=== PATIENT | female | born 1960 | race Caucasian/White ===

== ENCOUNTER 2019-11-02 12:28 | Emergency (ER) | payer SELFPAY ==
[~2019-11-02] VITALS: Ht 167.6 cm; Wt 76.2 kg
[2019-11-02] MEDS ORDERED: OLANZAPINE 5 MG TABLET ONE (13:14)
[2019-11-02] MEDS ORDERED: OLANZAPINE 5 MG TABLET PO ONE (13:15)
--- NOTE | 2019-11-02 14:08 | NUR ---
Patient given written and verbal discharge instructions. Patient verbalizes understanding of instructions. Patient is ambulatory with steady gait. Refuses offer of assisted placement. Patient given list of available shelters in surrounding area.
[2019-11-02 14:09] VITALS: BP 131/75
== END 2019-11-02 14:11 | disposition home or self-care (01) ==
LOC: ER 12:54
DX: Z76.0 Encounter for issue of repeat prescription (principal); F29 Unspecified psychosis not due to a substance or known physiological condition
CPT/HCPCS: A4663

== ENCOUNTER 2019-11-02 15:52 | Emergency (ER) | payer SELFPAY ==
[~2019-11-02] VITALS: Ht 170.2 cm; Wt 80.3 kg
[2019-11-02] MEDS ORDERED: IV NORMAL SALINE 1000 ML BAG IV ONE (16:00)
[2019-11-02 16:31] LABS: BASOPHILS # (AUTO) 0.1 K/uL (0.0-8.0); BASOPHILS % (AUTO) 0.9 % (0.0-2.0); EOSINOPHILS # (AUTO) 0.5 K/uL (0.0-0.7); EOSINOPHILS % (AUTO) 8.4 % (0.0-7.0); HEMATOCRIT 34.7 % (31.2-41.9); HEMOGLOBIN 11.5 g/dL (10.9-14.3); LYMPHOCYTES # (AUTO) 1.3 K/uL (20.0-40.0); LYMPHOCYTES % (AUTO) 20.9 % (20.5-51.5); MEAN CORPUSCULAR HEMOGLOBIN 30.2 uug (24.7-32.8); MEAN CORPUSCULAR HGB CONC 33 g/dL (32.3-35.6); MEAN CORPUSCULAR VOLUME 91.2 fL (75.5-95.3); MONOCYTES # (AUTO) 0.6 K/uL (2.0-10.0); MONOCYTES % (AUTO) 8.9 % (0.0-11.0); NEUTROPHILS # (AUTO) 3.9 K/uL (1.8-8.9); NEUTROPHILS % (AUTO) 60.9 % (38.5-71.5); PLATELET COUNT (AUTO) 224 K/uL (179-408); RED BLOOD CELL COUNT(AUTO) 3.81 MIL/uL (3.63-4.92); WHITE BLOOD COUNT (AUTO) 6.4 K/uL (3.8-11.8)
[2019-11-02 16:37] LABS: CARBON DIOXIDE 25 mmol/L (21-32); CHLORIDE 109 mmol/L (98-107); CREATININE 0.8 mg/dL (0.6-1.3); GLUCOSE 110 mg/dL (74-106); POTASSIUM 3.6 mmol/L (3.5-5.1); UREA NITROGEN, BLOOD 11 mg/dL (7-18)
--- NOTE | 2019-11-02 16:42 | NUR ---
PT IS IN ROOM #2B. DR NUNEZ EVALUATED THE PT.
[2019-11-02 16:48] LABS: ETHANOL < 3 MG/DL (0-0)
[2019-11-02 16:56] LABS: ALANINE AMINOTRANSFERASE 23 U/L (14-59); ALKALINE PHOSPHATASE 111 U/L (50-136); ASPARTATE AMINOTRANSFERASE 22 U/L (15-37); BILIRUBIN,DIRECT 0.1 mg/dL (0.0-0.2); BILIRUBIN,TOTAL 0.4 mg/dL (0.2-1.0); TOTAL PROTEIN, SERUM 6.3 g/dL (6.4-8.2)
[2019-11-02 16:59] LABS: ACETAMINOPHEN < 2.0 ug/mL (10-30); THYROID STIMULATING HORMONE 4.396 mIU/mL (0.358-3.740)
--- NOTE | 2019-11-02 17:07 | NUR ---
PT's SISTER KELLY WAS CALLED TO CROP OR GRAIN FARMER THE PT AFTER DISCHARGE FROM [facility]. MESSAGE WAS LEFT. ).
--- NOTE | 2019-11-02 18:10 | NUR ---
PT's SISTER WAS CALED 2nd TIME. MESSAGE WAS LEFT. PT IS RESTING IN BED COMFORTABLY. NO S/S OF ACUTE DISTRESS AT THIS TIME.
--- NOTE | 2019-11-02 19:00 | NUR ---
REPORT GIVEN TO STATEMENT DISTRIBUTION CLERK RN .
--- NOTE | 2019-11-02 19:15 | NUR ---
Patient noted resting in bed, no signs of distress noted
--- NOTE | 2019-11-02 20:22 | NUR ---
Vital signs are stable, patient continues to rest in bed with eyes closed, no signs of distress noted
--- NOTE | 2019-11-02 20:35 | NUR ---
limited radiology technician in room to take patient for CT of head
--- NOTE | 2019-11-02 20:49 | NUR ---
Patient back from CT of head
[2019-11-02] MEDS ORDERED: OLANZAPINE 5 MG TABLET PO ONE (21:15)
[2019-11-02] MEDS ORDERED: OLANZAPINE 5 MG TABLET ONE (21:25)
--- NOTE | 2019-11-02 23:09 | NUR ---
Note earnest in EDM - 11/02/19 at 2310 by JUHI Pt. admitted to [facility] at this time , under care of Dr. Gamal maddox Belongs List completed and all belongs sent with patient, 1 to 1 sitter at bedside, no behaviors noted
--- NOTE | 2019-11-02 23:57 | NUR ---
Patient noted resting in bed with eyes closed, no signs of distress noted
--- NOTE | 2019-11-03 00:53 | NUR ---
Patient continues to rest in bed, vitals WNL
--- NOTE | 2019-11-03 03:53 | NUR ---
Patient noted resting in bed, no signs of distres noted, vitals WNL
--- NOTE | 2019-11-03 06:43 | NUR ---
Patient noted resting in bed, no signs of distress noted, ranjan FARFAN
--- NOTE | 2019-11-03 07:10 | NUR ---
RECIEVED PT IN BED, PT SITTING ON BED WITH NO CLOTHES ON, REFUSES TO PUT HER OWN CLOTHES AND FACE MASK ON. WHEN TOLD THE PT TO PUT HER MASK AND CLOTHES ON, PT STARTED TO YELL, VERY RUDE. ASSISSTED THE PT TO PUT CLOTHING ON. Addendum: 11/03/19 at 1015 by ROSEY new clean clothing provided.
--- NOTE | 2019-11-03 07:38 | NUR ---
PT AMBULATED TO BATHROOM WITH OWN WALKER.
--- NOTE | 2019-11-03 08:08 | NUR ---
HOSPITAL TRAY AT BEDSIDE.
--- NOTE | 2019-11-03 08:26 | NUR ---
PT FINISHED THE BF TRAY WITH [employer]. PERSONAL HYGIENE PRODUCTS PROVIDED FOR PT.
--- NOTE | 2019-11-03 09:30 | NUR ---
talked to kareen, social media intern, jon around 1030.
--- NOTE | 2019-11-03 09:45 | NUR ---
pt says that she wants to be d/wendi. shoes, shirt, pants and jacket and meal bag provided for pt. Addendum: 11/03/19 at 0954 by ROSEY pt does not want to stay to see the social security benefits interviewer Addendum: 11/03/19 at 0955 by ROSEY pt does not want to wait to see the social security benefits interviewer.
--- NOTE | 2019-11-03 09:53 | NUR ---
Patient given written and verbal discharge instructions. Patient verbalizes understanding of instructions. Patient is ambulatory with steady gait. Refuses offer of senior living placement. Patient given list of available shelters in surrounding area. Addendum: 11/03/19 at 1001 by ROSEY pt axox4, uses own walker with out difficulty. pt ambulated to bathroom couple of times without difficulty. pt leaves er in a good spirit. deneis any pain,nausea, dizziness or any other complain.
[2019-11-03 10:01] VITALS: BP 130/81
--- NOTE | 2019-11-03 10:22 | NUR ---
10:00am: SW arrived to the ED to meet with the patient. JOON was informed by SONI Pitts that patient had chosen to leave, and that patient was already discharged. See nursing notes for resources and instructions provided. No SS interventions needed at this time.
== END 2019-11-03 10:16 | disposition home or self-care (01) ==
LOC: ER 15:55
DX: F23 Brief psychotic disorder (principal); Z59.0 Homelessness; G31.9 Degenerative disease of nervous system, unspecified
CPT/HCPCS: 36415; 70450; 71045; 80048; 80076; 80307; 80329; 82140; 83605; 84443; 84484; 85025; 85730; 87040; 93005; 99285; G0480; 70030-TC